=== PATIENT | female | born 1975 | race African-American/Black ===

== ENCOUNTER → 2016-07-08 | Outpatient (CLI) | payer BC ==
[2013-12-16 15:00] VITALS: BP 118/74
[~2016-07-08] MED LIST: ACET500T33 PO; ALPR0.5T6 PO; BUDE10.2 IH; CETI10TA22 PO; CIPR500T PO; CYAN10005 PO; CYCL10TA2 PO; CYCL2DRO4 OP; DILT30TA26 PO; ERGO50002 PO; FERR325T58 PO; HYDR200T5 PO; HYDR25TA9 PO; IBUP-1060 PO; MECL12.52 PO; METO10TA PO; METO10TA81 PO; MONT10TA9 PO; OMEP40CA5 PO; POTA20TA12 PO; PRED20TA PO; PRED5DRO6 EACHEYE; PROAIR HFA8.5 GM IH; RANI150T2 PO; SIMV20TA PO; SIMV20TA3 PO; ZOLP10TA4 PO
[2016-07-08 12:10] LABS: BASO % 1 % (0-3); EOS % 2 % (0-3); HEMATOCRIT 36.8 % (36.0-47.0); HEMOGLOBIN 12.3 g/dL (12.0-15.5); LYMPH # 2.5 x10^3/uL (1.0-4.8); LYMPH % 31 % (24-48); MEAN CORPUSCULAR HEMOGLOBIN 26 pg (25-35); MEAN CORPUSCULAR HGB CONC 33 g/dL (31-37); MEAN CORPUSCULAR VOLUME 77 fL (79-100); MONO % 7 % (0-9); NEUT % 59 % (31-73); PLATELET COUNT 281 x10^3/uL (140-400); RED BLOOD COUNT 4.81 x10^6/uL (3.50-5.40); RED CELL DISTRIBUTION WIDTH 14.7 % (11.5-14.5); WHITE BLOOD COUNT 7.9 x10^3/uL (4.0-11.0)
[2016-07-08 12:36] LABS: ALBUMIN 3.7 g/dL (3.4-5.0); CREATININE 0.6 mg/dL (0.6-1.0); GFR 134.7; POTASSIUM 3.7 mmol/L (3.5-5.1); TOTAL BILIRUBIN 0.5 mg/dL (0.2-1.0); TOTAL PROTEIN 7.4 g/dL (6.4-8.2)
[2016-07-08 12:37] LABS: CHOLESTEROL/HDL RATIO 2.4
[2016-07-08 12:47] LABS: FREE T4 1.17 ng/dL (0.76-1.46)
== END | disposition home or self-care (01) ==
LOC: LAB 11:47
PROVIDERS: ATTEND Internal Medicine Cardiovascular Disease
DX: I10 Essential (primary) hypertension (principal); R07.9 Chest pain, unspecified
CPT/HCPCS: 36415; 80053; 80061; 84439; 84443; 84481; 85027; 86141

== ENCOUNTER → 2016-10-14 | Outpatient (CLI) | payer BC ==
[2013-12-16 15:00] VITALS: BP 118/74
[~2016-10-14] MED LIST changes: +PRED5DRO16 EACHEYE; -PRED5DRO6 EACHEYE
== END | disposition home or self-care (01) ==
LOC: LAB 10:58
PROVIDERS: ATTEND Internal Medicine Cardiovascular Disease
DX: E78.2 Mixed hyperlipidemia (principal)
CPT/HCPCS: 36415; 80061

== ENCOUNTER → 2016-12-14 | Outpatient (CLI) | payer BC ==
[2013-12-16 15:00] VITALS: BP 118/74
[2016-12-14 13:28] LABS: BASO % 1 % (0-3); EOS % 3 % (0-3); HEMATOCRIT 33.3 % (36.0-47.0); HEMOGLOBIN 11.1 g/dL (12.0-15.5); LYMPH # 2.2 x10^3/uL (1.0-4.8); LYMPH % 30 % (24-48); MEAN CORPUSCULAR HEMOGLOBIN 26 pg (25-35); MEAN CORPUSCULAR HGB CONC 33 g/dL (31-37); MEAN CORPUSCULAR VOLUME 79 fL (79-100); MONO % 7 % (0-9); NEUT % 59 % (31-73); PLATELET COUNT 241 x10^3/uL (140-400); RED BLOOD COUNT 4.24 x10^6/uL (3.50-5.40); RED CELL DISTRIBUTION WIDTH 14.6 % (11.5-14.5); WHITE BLOOD COUNT 7.2 x10^3/uL (4.0-11.0)
[2016-12-14 13:52] LABS: ALBUMIN 3.5 g/dL (3.4-5.0); CALCIUM 9.2 mg/dL (8.5-10.1); CREATININE 0.5 mg/dL (0.6-1.0); GFR 166.2; TOTAL BILIRUBIN 0.5 mg/dL (0.2-1.0); TOTAL PROTEIN 7.1 g/dL (6.4-8.2)
[2016-12-14 13:54] LABS: CHOLESTEROL/HDL RATIO 2.1
== END | disposition home or self-care (01) ==
LOC: LAB 12:35
PROVIDERS: ATTEND Internal Medicine Cardiovascular Disease
DX: I10 Essential (primary) hypertension (principal); E78.2 Mixed hyperlipidemia; R00.2 Palpitations; R94.31 Abnormal electrocardiogram [ECG] [EKG]; R01.2 Other cardiac sounds
CPT/HCPCS: 80053; 80061; 84443; 85025; 85651